=== PATIENT | male | born 1965 | race Caucasian/White ===

== ENCOUNTER 2022-01-06 06:14 | Emergency (ER) | payer BC, SELFPAY ==
[2022-01-06 06:20] VITALS: BP 140/87; PULSE 75; RESP 16; TEMP 36.6; O2SAT 100; BMI 31.3
[2022-01-06 06:24] VITALS: BMI 31.3
[2022-01-06 06:28] LABS: Microscopic, Urine URINE MICROSCOPIC (MICROSCOPIC)
[2022-01-06 06:29] LABS: Appearance,Urine CLEAR (Clear); Bilirubin,Urine Negative (Negative); Blood, Urine Negative (Negative); Color,Urine YELLOW (Yellow); Glucose,Urine (UA) Negative (Negative); Ketones,Urine Negative (Negative); Leukocyte Esterase,Urine Negative (Negative); Nitrate,Urine Negative (Negative); PH,Urine 6.5 (5.0-8.5); Protein,Urine Negative (Negative); Specific Gravity, Urine 1.025 (1.005-1.030)
[2022-01-06 06:30] VITALS: BP 125/77; PULSE 70; O2SAT 99
[2022-01-06 06:41] LABS: Squamous Epithelial Cell,Urine Occasional #/hpf (0-5)
--- NOTE | 2022-01-06 06:45 | XR_ITS ---
FINAL REPORT CLINICAL HISTORY: lt lower back pain FINDINGS: LUMBAR SPINE. Six views demonstrate no acute fracture. There is mild disc space narrowing at L3-4. There is moderate facet sclerosis in the lower lumbar spine. There is no malalignment. IMPRESSION: Degenerative disc disease as above. Reviewed, Interpreted and Dictated by Justus Scott MD Transcribed by Kamala Varela Authenticated and [facility]
--- NOTE | 2022-01-06 06:45 | PC.NURSE ---
Pt gone to RAD for XRAY
--- NOTE | 2022-01-06 06:46 | XR_ITS ---
FINAL REPORT CLINICAL HISTORY: lt hip pain FINDINGS: LEFT HIP/PELVIS Four views were obtained. There is no acute fracture or dislocation. There are prominent hypertrophic changes at the acetabular margins bilaterally. There is mild joint space narrowing. No soft tissue abnormality is identified. IMPRESSION: Degenerative changes as above. Reviewed, Interpreted and Dictated by Justus Scott MD Transcribed by Kamala Varela Authenticated and [facility]
--- NOTE | 2022-01-06 06:57 | PC.NURSE ---
Pt back form RAD
[2022-01-06 07:00] VITALS: BP 137/81; PULSE 68; O2SAT 99
--- NOTE | 2022-01-06 07:04 | HMH.EDGENADL ---
ED Disposition Clinical Impression: Lumbar radicular pain Disposition: Home, Self-Care Condition on Discharge: Good Instructions: DI for Lumbar Radiculopathy Additional Instructions: use meds and see pcp for follow up Prescriptions: predniSONE [Prednisone 20mg Tab] 20 mg PO BID #10 tab Transmission Status: Pending to [facility] Referrals: Provider,Referral, [Primary Care Provider] - - Critical Care Critical Care Time: No Attestation: On 01/06/22, the high probability of a clinically significant, sudden or life threatening deterioration of the following system(s) required my full and direct attention, intervention and personal management. The time I documented below is in addition to time spent performing reported procedures but includes the following listed in this critical care notation. Medical Decision Making - Medical Records Medical records reviewed: Yes: I reviewed the patient's medical records. - Chilo Inquiry Pt receiving controlled substance: No Vital Signs: 01/06/22 06:20 01/06/22 06:30 01/06/22 07:00 Temperature 97.9 F Temperature Source Oral Pulse Rate 70 68 Pulse Rate [Left Radial] 75 Respiratory Rate 16 Blood Pressure 125/77 137/81 Blood Pressure [Right Arm] 140/87 Blood Pressure Mean 98 Blood Pressure Mean [Right Arm] 104 Blood Pressure Source [Right Arm] Automatic Cuff Blood Pressure Position [Right Arm] Sitting 02 Sat by Pulse Oximetry 100 99 99 Oxygen Delivery Method Room Air Room Air - Lab Data Lab results reviewed: Yes: I reviewed the patient's lab results. Lab Results 01/06/22 06:23: Urine Color Yellow, Urine Appearance Clear, Urine pH 6.5, Ur Specific [place] 1.025, Urine Protein Negative, Urine Glucose (UA) Negative, Urine Ketones Negative, Urine Blood Negative, Urine Nitrate Negative, Urine Bilirubin Negative, Urine Urobilinogen 1.0, Ur Leukocyte Esterase Negative, Urine RBC None, Urine WBC 3-5, Ur Squamous Epith Cells Occasional, Urine Bacteria None Orders (Tests/Meds): ORDERS Category Date Time Status XR hip LT 2-3V w/pelvis Stat Exams 01/06/22 06:46 Taken XR lumbar spine min 4V Stat Exams 01/06/22 06:45 Taken - Radiology Data #1 Image(s): L-Spine, Pelvis, Hip Image Reviewed: Yes I reviewed the patient's radiology image Preliminary Findings: No Fracture Seen Medical Decision Narrative: pt with acute sciatica by hx and clinical exam General Adult HPI - General Chief complaint: PAIN Stated complaint: Lower left side back pain radiating down left leg Time Seen by Provider: 01/06/22 07:04 Mode of Arrival: Ambulatory Source of Information: Patient, Medical Record Limitations: No Limitations Description of Symptoms (Recalled from ER Triage Doc. by RN): LEFT LOWER BACK PAIN WITH RADIATION DOWN LEFT LOWER EXTREMITY X 3 DAYS. PT REPORTS PAIN IS SIMILAR TO PREVIOUS EPISODE OF SCIATIC NERVE PAIN. PT REPORTS PAIN 01/01. PT REPORTS THAT HE TOOK TYLENOL 3 DAYS AGO- BUT NOTHING SINCE THAT TIME. - History of Present Illness HPI narrative: pt with atraumatic back pain with rad to lt lower ext w/o rash or fever and hx of same Onset (ago): day(s) Location: back Radiation: extremity Severity: moderate Consistency: intermittent Associated symptoms: denies other symptoms Treatments prior to arrival: none - Related Data Previous Rx's Medication Instructions Recorded predniSONE [Prednisone 20mg 20 mg PO BID #10 tab 01/06/22 Tab] Allergies Allergy/AdvReac Type Severity Reaction Status Date / Time No Known Allergies Allergy Verified 01/06/22 06:25 [facility] History - Hepatitis A Screen Attestation statement:: This patient has been screened for Hepatitis A risk factors. I have reviewed the patient's past medical history: Yes ROS Obtained: Yes All systems reviewed & no additional complaints - Constitutional Constitutional: Denies fever(s) - Eyes Eyes: Denies change in vision -
--- NOTE | 2022-01-06 07:22 | PC.NURSE ---
pt resting offers no c/o at present
[2022-01-06 07:44] VITALS: BP 126/79; PULSE 69; RESP 16; TEMP 36.6; O2SAT 98
== END 2022-01-06 07:45 | disposition home or self-care (01) ==
PROVIDERS: Emergency Provider Emergency Medicine
DX: M54.16 Radiculopathy, lumbar region (principal)
CPT/HCPCS: 72110; 73502; 81001; 99283

== ENCOUNTER 2022-01-31 19:44 | Emergency (ER) | payer OTHER, BC, SELFPAY ==
[2022-01-31 19:45] VITALS: BP 124/84; PULSE 80; RESP 17; TEMP 36.9; O2SAT 97; BMI 30.2
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
[2022-01-31 20:48] VITALS: BP 131/74; PULSE 80; RESP 18; TEMP 36.9; O2SAT 98
--- NOTE | 2022-01-31 20:59 | PC.NURSE ---
Pt's friends given instruction as well. States he will help pt get to ophthalmology in am
== END 2022-01-31 20:58 | disposition home or self-care (01) ==
PROVIDERS: Emergency Provider Emergency Medicine
DX: H16.133 Photokeratitis, bilateral (principal)
CPT/HCPCS: 99282

== ENCOUNTER → 2022-05-29 11:00 | Outpatient (CLI) | payer BC, SELFPAY | PROVIDERS: PCP Nurse Practitioner Family; Visit Provider Nurse Practitioner Family | DX: Z20.822 Contact with and (suspected) exposure to COVID-19 (principal); R50.9 Fever, unspecified | CPT/HCPCS: C9803; U0003; U0005 ==

== ENCOUNTER 2024-04-30 06:57 | Emergency (ER) | payer MEDICAID, SELFPAY ==
[2024-04-30 07:06] VITALS: BP 143/93; PULSE 74; O2SAT 98
[2024-04-30 07:07] VITALS: BP 143/93; PULSE 70; RESP 18; TEMP 36.7; O2SAT 98; BMI 29.1
--- NOTE | 2024-04-30 07:27 | XR_ITS ---
PROCEDURE INFORMATION: Exam: XR Left Femur Exam date and time: 04/30/2024 7:55 AM Age: 58 years old Clinical indication: Pain; Hip; Left; Additional info: Fall, pain TECHNIQUE: Imaging protocol: Radiologic exam of the left femur. Views: 2 views. COMPARISON: CR XR FEMUR LT 2V 04/30/2024 7:55 AM FINDINGS: Bones/joints: Unremarkable. No acute fracture. Soft tissues: Unremarkable. IMPRESSION: No acute findings.
--- NOTE | 2024-04-30 07:27 | XR_ITS ---
PROCEDURE INFORMATION: Exam: XR Chest Exam date and time: 04/30/2024 7:55 AM Age: 58 years old Clinical indication: Pain; Chest pressure; Additional info: Fall, pain TECHNIQUE: Imaging protocol: Radiologic exam of the chest. Views: 1 view. COMPARISON: CT THORACIC SPINE WO CON 04/30/2024 7:49 AM FINDINGS: Lungs: No evidence of pneumonia or interstitial edema. Pleural spaces: Unremarkable. No pleural effusion. No pneumothorax. Heart/Mediastinum: Unremarkable. No cardiomegaly. Bones/joints: No visible acute fracture. IMPRESSION: 1. No evidence of pneumonia or interstitial edema. 2. No visible acute fracture.
--- NOTE | 2024-04-30 07:27 | CT_ITS ---
FINAL REPORT CLINICAL HISTORY: fall and slipped on stairs COMPARISON: None FINDINGS: Axial CT images of the thoracic spine were obtained without contrast. Sagittal and coronal reformatted images were also obtained. This study was performed with techniques to keep radiation doses as low as reasonably achievable (ALARA). Individualized dose reduction techniques using automated exposure control or adjustment of mA and/or kV according to the patient's size were employed. There is no evidence of fracture. There is mild degenerative change of the thoracic spine with osteophytes present. The vertebral alignment is normal. There is no evidence of significant canal stenosis. No paraspinous soft tissue abnormality is identified. Note is made of a 4 mm medial right upper lobe nodule, likely benign but consider 12-month follow-up with chest CT. IMPRESSION: No fracture or acute bony abnormality. 4 mm medial right upper lobe nodule, likely benign, but consider 12-month follow-up with chest CT. Reviewed, Interpreted and Dictated by Lyle Chua III, MD Transcribed by Esha Coronado Authenticated and [facility]
--- NOTE | 2024-04-30 07:27 | XR_ITS ---
PROCEDURE INFORMATION: Exam: XR Left Hip Exam date and time: 04/30/2024 7:55 AM Age: 58 years old Clinical indication: Hip pain; Bilateral; Additional info: Fall, pain TECHNIQUE: Imaging protocol: Radiologic exam of the left hip. Views: 2 or 3 views hip with pelvis when performed. COMPARISON: CR XR HIP LT 2-3V W/PELVIS 04/30/2024 7:55 AM FINDINGS: Bones/joints: Unremarkable. No acute fracture. Soft tissues: Unremarkable. IMPRESSION: No acute findings.
--- NOTE | 2024-04-30 07:27 | CT_ITS ---
FINAL REPORT CLINICAL HISTORY: fall onto back ..slipped on stairs COMPARISON: None FINDINGS: Axial images through the pelvis were performed by computed tomography. Sagittal and coronal reconstruction images were performed. This study was performed with techniques to keep radiation doses as low as reasonably achievable (ALARA). Individualized dose reduction techniques using automated exposure control or adjustment of mA and/or kV according to the patient's size were employed. No fracture is identified. No dislocation identified. 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 There are several small sclerotic foci in the bony pelvis, likely bone islands. However there is a 6 mm sclerotic focus in the mid sacrum, and would consider MRI or bone scan for further evaluation. There is a left inguinal hernia containing fat, as well as an umbilical hernia containing fat. IMPRESSION: No acute process. 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 Several sclerotic foci are present in the bony pelvis, likely bone islands. However there is a 6 mm sclerotic focus in the mid sacrum that does not have an appearance consistent with a bone island. Would consider MRI or bone scan for further evaluation. Reviewed, Interpreted and Dictated by Lyle Chua III, MD Transcribed by Esha Coronado Authenticated and [facility]
--- NOTE | 2024-04-30 07:27 | CT_ITS ---
FINAL REPORT CLINICAL HISTORY: fall onto stairs this am COMPARISON: None FINDINGS: Axial images of the head were obtained without contrast. Coronal and sagittal reformatted images were also obtained.This study was performed with techniques to keep radiation doses as low as reasonably achievable (ALARA). Individualized dose reduction techniques using automated exposure control or adjustment of mA and/or kV according to the patient's size were employed. There is no evidence of intracranial hemorrhage or mass. The ventricular size is within normal limits. There is no evidence of shift of the midline structures. No abnormal extra axial fluid collection is identified. No skull abnormality is seen on the bone window images. There is a retention cyst or polyp present in the right maxillary sinus. IMPRESSION: No acute intracranial abnormality. Reviewed, Interpreted and Dictated by Lyle Chua III, MD Transcribed by Esha Coronado Authenticated and [facility]
--- NOTE | 2024-04-30 07:27 | CT_ITS ---
FINAL REPORT TECHNIQUE: Axial imaging of the lumbar spine was obtained without contrast. Sagittal and coronal reformatted images were also obtained and reviewed. This study was performed with techniques to keep radiation doses as low as reasonably achievable (ALARA). Individualized dose reduction techniques using automated exposure control or adjustment of mA and/or kV according to the patient's size were employed. CLINICAL HISTORY: fall on stairs this am COMPARISON: None FINDINGS: There is no fracture. There is mild anterolisthesis of L3 on L4.. Mild and moderate degenerative change is present. There is facet arthropathy of the lower lumbar spine, as well as moderate degenerative canal stenosis at the L3-4 level, with an AP canal diameter of 5 mm. There is also moderate to severe neural foraminal narrowing at the L3-4 level. T12-L1: No evidence of central canal stenosis or neural foraminal narrowing. L1-L2: No evidence of central canal stenosis or neural foraminal narrowing. L2-L3: Facet osteoarthropathy is present. No evidence of central canal stenosis or neural foraminal narrowing. L3-L4: Facet osteoarthropathy is present. There is moderate canal stenosis with an AP canal diameter of 5 mm at this level. There is moderate to severe neural foraminal narrowing as well. L4-L5: Facet osteoarthropathy is present. No evidence of central canal stenosis or neural foraminal narrowing. L5-S1: Facet osteoarthropathy is present. No evidence of central canal stenosis or neural foraminal narrowing. IMPRESSION: Multilevel degenerative change without acute bony abnormality. Moderate canal stenosis with an AP canal diameter of 5 mm at the L3-4 level. There is moderate to severe neural foraminal narrowing at this level. If indicated, MRI would be helpful for further evaluation. Reviewed, Interpreted and Dictated by Lyle Chua III, MD Transcribed by Esha Coronado Authenticated and [facility]
--- NOTE | 2024-04-30 07:27 | CT_ITS ---
FINAL REPORT CLINICAL HISTORY: fall on stairs this am COMPARISON: None FINDINGS: Axial CT images of the cervical spine were obtained without contrast. Sagittal and coronal reformatted images were also obtained. This study was performed with techniques to keep radiation doses as low as reasonably achievable (ALARA). Individualized dose reduction techniques using automated exposure control or adjustment of mA and/or kV according to the patient's size were employed. There is no evidence of fracture or dislocation. The bony alignment is normal. The disc spaces are preserved. There are mild degenerative osteophytes present, as well as mild neural foraminal narrowing at the C5-6 and C6-7 levels. There is no evidence of canal stenosis. No paraspinous soft tissue abnormality is seen. Limited images of the upper thorax are unremarkable. IMPRESSION: No fracture or acute bony abnormality identified. Mild degenerative change as described above. Reviewed, Interpreted and Dictated by Lyle Chua III, MD Transcribed by Esha Coronado Authenticated and [facility]
--- NOTE | 2024-04-30 07:29 | ED_ITS ---
Discharge Plan Disposition Patient Disposition: Home, Self-Care Condition: Good Prescriptions Prescriptions: No Action Centrsaida Silver Men 300-600-300 mcg tablet 1 tab PO DAILY amoxicillin 875 mg tablet 875 mg PO BID 7 Days Qty: 14 0RF Referrals Follow up/Referrals: Thong Campos [Primary Care Provider] - See instructions Activity Restrictions/Add. Instructions Additional Instructions/Restrictions: You were evaluated in the emergency department today. At this time, x-rays and CTs do not demonstrate any acute broken bones or traumatic injuries. You do have a lung nodule, for which I recommend follow-up with primary care. You also have a bone island found in your sacrum as well as spinal stenosis, for which you can follow up as well. Take tylenol and ibuprofen at home as needed for pain. Return to the ER for new or worsening symptoms. Clinical Impressions Clinical Impression: Fall, Acute hip pain, Back pain, Lung nodule, Bone island of sacrum, Spinal stenosis Stand Alone Forms Stand Alone Forms: Work/School Release Instructions Patient Instructions: DI for Low Back Pain Print Language Print Language: Gabonese Discharge ED Provider: Shital Duff General Adult HPI General Chief complaint: Back Pain/Injury Stated complaint: AO 12/16 06:00, fell inj back and left hip Time Seen by Provider: 04/30/24 07:14 Mode of Arrival: Ambulatory Source of Information: Patient Limitations: No Limitations Description of Symptoms (Recalled from ER Triage Doc. 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 Pt denies hitting head, - loc. takes aspirin daily, pain 8/10. History of Present Illness HPI narrative: This patient is a 58-year-old male who has a history of CAD status post tenting on aspirin presenting to the emergency department for evaluation with concern for neck pain, back pain, left hip pain after a mechanical ground-level fall. Patient reports that he was walking down his ramp at his house today when he slipped and fell backwards, landing flat on his back. He hit his head but did not lose consciousness. He is got neck pain, back pain, left hip pain. No numbness or tingling. He is ambulatory without significant issue. Related Data Home Medications ?Medication ?Instructions ?Recorded ?Confirmed [id number] 300 mcg-K 60 1 tab PO DAILY 05/29/22 05/29/22 mcg-lycop 600 mcg-lutein 300 mcg tablet (Centrum Silver Men) Previous Rx's ?Medication ?Instructions ?Recorded amoxicillin 875 mg tablet 875 mg PO BID 7 days #14 tabs 05/23/22 Allergies Allergy/AdvReac Type Severity Reaction Status Date / Time No Known Allergies Allergy Verified 05/29/22 10:58 [facility] Disclaimer: The information contained in this section may have been updated after the patient was seen, as this information can be updated by other users. Surgical History History of dental surgery H/O adenoidectomy History of tonsillectomy Family History Mother Heart attack Father Cancer Social History Smoking Status: Current every day smoker tobacco type: cigarettes packs per day: 1 alcohol intake: never substance use type: denies use current occupational status: employed Travel in the last 8 weeks: Inside the [place] household members: none housing: house Other Medical History Have you received the Flu Vaccine for this season: Yes Have you received the Pneumonia Vaccine: Yes ROS Obtained: Yes All systems reviewed & no additional complaints except as documented Physical Exam General General appearance: alert and in no apparent distress Head Head exam: atraumatic and normocephalic Eye Eye exam: Present normal appearance, PERRL and EOMI ENT ENT exam: Present normal exam, normal oropharynx, mucous membranes moist and normal external ear exam Neck Neck exam: Present normal inspection, full ROM and trachea midline; Absent tenderness Chest Chest inspection: Present normal inspection and symmetric chest wall rise; Absent tenderness Respiratory Respiratory exam: Present normal lung sounds bilaterally; Absent respiratory distress, wheezes, stridor or accessory muscle use Cardiovascular Cardiovascular exam: Present regular rate and normal rhythm Abdominal Exam Abdominal exam: Present soft; Absent distention, tenderness or guarding Extremities Exam Extremities exam: Present normal inspection, full ROM and normal capillary refill; Absent tenderness or edema Back Exam Back exam: Present normal inspection and full ROM; Absent tenderness Neurological Exam Neurological exam: Present alert, oriented X3, CN II-XII intact and normal gait; Absent motor sensory deficit Psychiatric Psychiatric exam: Present normal affect and normal mood Skin Skin exam: Present warm and dry Medical Decision Making Medical Records Medical records reviewed: Yes I reviewed the patient's medical records. Screening: Per USPSTF and CDC recommendations, given the prevalence of disease in our region, it is our hospital?s policy to screen for HIV and viral Hepatitis for all patients aged 18 and over and those with ongoing risk factors. Chilo Inquiry Pt receiving controlled substance: No Vital Signs: 04/30/24 07:06 04/30/24 07:07 04/30/24 07:07 Temperature 98.0 F 98.0 F Temperature Source Oral Oral Pulse Rate 74 70 Pulse Rate [Apical] 70 Respiratory Rate 18 18 Blood Pressure 143/93 H 143/93 H Blood Pressure [Right Arm] 143/93 H Blood Pressure Mean [Right Arm] 109 Blood Pressure Position [Right Arm] Supine 02 Sat by Pulse Oximetry 98 98 98 Oxygen Delivery Method Room Air Room Air Room Air 04/30/24 07:30 04/30/24 09:51 Temperature 98.2 F Temperature Source Pulse Rate 71 80 Pulse Rate [Apical] Respiratory Rate 20 Blood Pressure 125/81 148/79 H Blood Pressure [Right Arm] Blood Pressure Mean [Right Arm] Blood Pressure Position [Right Arm] 02 Sat by Pulse Oximetry 96 Oxygen Delivery Method Room Air Room Air Lab Data Lab results reviewed: Yes I reviewed the patient's lab results. Orders (Tests/Meds): ED MEDICATIONS Discontinued Medications Generic Name Dose Route Start Last Admin Trade Name Freq PRN Reason Stop Dose Admin Acetaminophen 1,000 mg 04/30/24 07:29 04/30/24 07:38 Acetaminophen 500mg Tab PO 04/30/24 07:30 1,000 mg ONCE ONE Administration Ibuprofen 800 mg 04/30/24 07:29 04/30/24 07:38 Ibuprofen 400 Mg Tablet PO 04/30/24 07:30 800 mg ONCE ONE Administration ORDERS Category Date Time Status CT bony pelvis Stat Cat Scan 04/30/24 07:[address] cervical spine wo con Stat Cat Scan 04/30/24 07:[address] head/brain wo con Stat Cat Scan 04/30/24 07:[address] lumbar spine wo con Stat Cat Scan 04/30/24 07:[address] thoracic spine wo con Stat Cat Scan 04/30/24 07:27 Taken CXR --portable [XR chest portable] Stat Exams 04/30/24 07:27 Completed Femur XR left 2 views [XR femur LT 2V] Stat Exams 04/30/24 07:27 Completed Hip XR left minimum 2 views [XR hip LT 2-3V w/pelvis] Exams 04/30/24 07:27 Completed Stat Medical Decision Narrative: In summary, this patient is a 58-year-old male presenting to the Emergency Department for evaluation of neck, left hip, and back pain after a mechanical ground-level fall. Differential diagnoses considered include but are not limited to fracture, contusion, strain/sprain, intracranial hemorrhage, polytrauma. Ruling out the most morbid conditions drove assessment. It should be noted patient's history includes CAD status post stenting on aspirin which may or may not be at goal therapy. This complicates all aspects of care by increasing patient's risk for morbidity. On exam, the patient is sitting upright in bed in no acute distress with reassuring vital signs on cardiac telemetry. He exam is reassuring without significant bony tenderness. He is neurologically intact and neurovascularly intact in all 4 extremities. Workup included CTs of the head, spines, pelvis, and x-rays of the painful left lower extremity. Patient was given oral Tylenol and ibuprofen for symptomatic improvement of pain. On reassessment, the patient had good improvement in his pain and has full range of motion of his neck. Given this, I feel that he is appropriate for discharge home with prescriptions to treat symptoms and instructions for close follow-up with primary care. Strict return precautions were given and he was discharged after all questions were answered. Critical Care Critical Care Time Critical Care Time: No
[2024-04-30 07:30] VITALS: BP 125/81; PULSE 71; O2SAT 96
[2024-04-30] MEDS: ACETAMINOPHEN 500MG TAB 1000 MG PO (07:38)
[2024-04-30] MEDS: IBUPROFEN 400 MG TABLET 800 MG PO (07:38)
--- NOTE | 2024-04-30 07:42 | PC.NURSE ---
patient gone to XRay.
[2024-04-30 09:51] VITALS: BP 148/79; PULSE 80; RESP 20; TEMP 36.8; O2SAT 98
== END 2024-04-30 09:52 | disposition home or self-care (01) ==
PROVIDERS: Emergency Provider Emergency Medicine; PCP Neurological Surgery
DX: M48.00 Spinal stenosis, site unspecified (principal); R91.1 Solitary pulmonary nodule; M89.8X8 Other specified disorders of bone, other site; M54.9 Dorsalgia, unspecified; M25.552 Pain in left hip; M54.2 Cervicalgia; W01.0XXA Fall on same level from slipping, tripping and stumbling without subsequent striking against object, initial encounter; Y93.89 Activity, other specified; Y92.008 Other place in unspecified non-institutional (private) residence as the place of occurrence of the external cause
CPT/HCPCS: 70450; 71045; 72125; 72128; 72131; 72192; 73502; 73552; 99284

== ENCOUNTER 2024-08-15 21:01 | Emergency (ER) | payer MEDICAID, SELFPAY ==
[2024-08-15 21:04] VITALS: BP 143/92; PULSE 81; RESP 18; TEMP 37; O2SAT 99; BMI 28.1
[2024-08-15 21:08] VITALS: BP 136/85; RESP 14
--- NOTE | 2024-08-15 21:13 | ED_ITS ---
<Statement entered by Marques Lara MD - 08/15/24 23:16> I was consulted by the FLOR, and we discussed the complexity of the problems being addressed. I approved the treatment and management plan for this patient's care in the emergency department, thus performing a substantive portion of the medical decision making. Marques Lara MD, CORNELIUS, FACEP Discharge Plan Disposition Patient Disposition: Home, Self-Care Condition: Good Prescriptions Prescriptions: No Action Centrum Silver Men 300-600-300 mcg tablet 1 tab PO DAILY amoxicillin 875 mg tablet 875 mg PO BID 7 Days Qty: 14 0RF Referrals Follow up/Referrals: Thong Mckeon DO [Primary Care Provider] - See instructions Activity Restrictions/Add. Instructions Additional Instructions/Restrictions: Continue using the eyedrops eyedrop in each eye twice a day. I recommend that you follow-up with eye doctor on Sunday or sooner if you have worsening signs or symptoms or you may return to the ER. Clinical Impressions Clinical Impression: Welders' keratitis of both eyes Print Language Print Language: Maori Discharge ED Provider: Marques Lara General Adult HPI General Chief complaint: Eye Problems Stated complaint: eye irritation from welding Time Seen by Provider: 08/15/24 21:13 Mode of Arrival: Ambulatory Source of Information: Patient Limitations: No Limitations Description of Symptoms (Recalled from ER Triage Doc. by RN): Pt states he was welding at work and sustained a flash burn . PT states he had his welding mask on and it didn't auto dark as quick as it should . Pt states this happened around 2:30pm today. 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 He has been and I hurt more more as the day is gone on. He denies any loss of vision and this has happened before but it has been quite a while since the last time. He denies any foreign body denies any vision loss. Related Data Home Medications ?Medication ?Instructions ?Recorded ?Confirmed [id number] 300 mcg-K 60 1 tab PO DAILY 05/29/22 05/29/22 mcg-lycop 600 mcg-lutein 300 mcg tablet (Centrum Silver Men) Previous Rx's ?Medication ?Instructions ?Recorded amoxicillin 875 mg tablet 875 mg PO BID 7 days #14 tabs 05/23/22 Allergies Allergy/AdvReac Type Severity Reaction Status Date / Time No Known Allergies Allergy Verified 05/29/22 10:58 [facility] Disclaimer: The information contained in this section may have been updated after the patient was seen, as this information can be updated by other users. Surgical History History of dental surgery H/O adenoidectomy History of tonsillectomy Family History Mother Heart attack Father Cancer Social History Smoking Status: Current every day smoker tobacco type: cigarettes packs per day: 1 alcohol intake: never substance use type: denies use current occupational status: employed Travel in the last 8 weeks: [place] the [place] household members: none housing: house Have you lived/traveled outside [place] in past 30 days?: No Contact w/someone who lives/traveled outside [place] past 30 days?: No Exposure to someone with infectious disease in past 14 days?: No Do you have a fever (greater than 100.4 F or 38 C)?: No Have you tested positive for COVID-19: No Exposed to someone with COVID-19 in past 14 days?: No Do you have a sore throat?: No Do you have a cough?: No Do you have any weakness?: No Do you have any diarrhea?: No Are you experiencing any unusual bleeding?: No Do you have any muscle aches/pain?: No Do you have any abdominal pain?: No Are you experiencing loss of taste or smell?: No Other Medical History Have you received the Flu Vaccine for this season: Yes Have you received the Pneumonia Vaccine: Yes ROS Obtained: Yes Systems reviewed as appropriate & no additional complaints except as documented Physical Exam General General appearance: alert and in no apparent distress Respiratory Respiratory exam: Present normal lung sounds bilaterally Cardiovascular Cardiovascular exam: Present regular rate and +S2 Neurological Exam Neurological exam: Present alert and oriented X3 Medical Decision Making Medical Records Medical records reviewed: Yes I reviewed the patient's medical records. Screening: Per USPSTF and CDC recommendations, given the prevalence of disease in our region, it is our hospital?s policy to screen for HIV and viral Hepatitis for all patients aged 18 and over and those with ongoing risk factors. Chilo Inquiry Pt receiving controlled substance: No Vital Signs: 08/15/24 21:04 08/15/24 21:08 Temperature 98.6 F Temperature Source Oral Pulse Rate [Right] 81 Respiratory Rate 18 14 Blood Pressure 136/85 Blood Pressure [Right Arm] 143/92 H Blood Pressure Mean [Right Arm] 109 02 Sat by Pulse Oximetry 99 Oxygen Delivery Method Room Air Room Air Medical Decision Narrative: In summary patient is a 58-year-old male who presents to the emergency department for evaluation of welding flash burn to his eyes. Patient is hemodynamically stable upon arrival, afebrile. Physical exam shows that he has bulbar and conjunctival erythema without drainage. He has full range of motion without extraocular pain. Patient reports seeing normally with no vision changes.. Differential diagnosis includes Welders keratitis versus corneal abrasion etc. Initial workup will be conducted with exam under topical anesthesia. After topical tetracaine each eye was stained with foreseen. Examination under UV light shows no evidence of corneal ulceration burn or opacity no foreign body. As patient has no visual changes he is appropriate for discharge with close follow-up as with eye doctor. I have given him Neosporin eyedrops that he will use 1 drop twice a day. I have advised patient if he has continued new or worsening signs or symptoms to follow-up with ophthalmology or optometry or return to the ER as needed. Have also advised the patient to avoid welding exposure for at least 24 hours. Patient verbalized understanding and agreement. Critical Care Critical Care Time Critical Care Time: No
[2024-08-15 21:43] VITALS: BP 136/85; PULSE 76; RESP 16; TEMP 36.6; O2SAT 98
== END 2024-08-15 21:45 | disposition home or self-care (01) ==
LOC: ER 21:18
PROVIDERS: Emergency Provider Student in an Organized Health Care Education/Training Program; PCP Family Medicine
DX: H16.133 Photokeratitis, bilateral (principal); H57.13 Ocular pain, bilateral; W89.0XXA Exposure to welding light (arc), initial encounter
CPT/HCPCS: 99283